=== PATIENT | male | born 1955 | race Caucasian/White ===

== ENCOUNTER 2018-07-20 20:39 | Emergency (ER) | payer MEDICARE, MEDICAID ==
--- NOTE | 2018-07-20 20:59 | ER Document Report ---
ED Medical Screen (RME) - General Chief Complaint: Abdominal Pain Stated Complaint: ABDOMINAL PAIN Time Seen by Provider: 07/20/18 20:57 Notes: 63-year-old male with a history of rectal cancer currently on chemotherapy comes for chief complaint of abdominal pain, when asked where he hurts he points to his right upper quadrant, no vomiting, no fever, last bowel movement was yesterday and normal reportedly. No surgeries of the abdomen reported. Eating less today per family. TRAVEL OUTSIDE OF THE [place] IN LAST 30 DAYS: No Physical Exam - Vital signs Vitals: Temp Pulse BP Pulse Ox 98.6 F 112 H 137/77 H 98 07/20/18 20:49 07/20/18 20:49 07/20/18 20:49 07/20/18 20:49 - General General appearance: Appears well In distress: None - Abdominal Inspection: Other - Irritation rash, no vesicles suggesting shingles Tenderness: Tender - Tender in the mid to upper abdomen on the right, remaining abdomen soft and benign. Course - Re-evaluation Re-evalutation: Patient almost nonverbal. He is smiling, attentive, he does have upper abdominal pain on palpation however. - Vital Signs Vital signs: Temp Pulse Resp BP Pulse Ox 98.6 F 112 H 137/77 H 98 07/20/18 20:49 07/20/18 20:49 07/20/18 20:49 07/20/18 20:49
[2018-07-20] MEDS ORDERED: NORMAL SALINE 1000 ML 1,000 ML IV ONE (21:20)
[2018-07-20 21:33] LABS: APPEARANCE,URINE CLOUDY; BILIRUBIN,URINE SMALL (NEGATIVE); COLOR,URINE AMBER; GLUCOSE, URINE 50 mg/dL (NEGATIVE); KETONES,URINE NEGATIVE (NEGATIVE); LEUKOCYTE ESTERASE,URINE NEGATIVE (NEGATIVE); NITRITE,URINE NEGATIVE (NEGATIVE); PROTEIN,URINE 100 mg/dL (NEGATIVE); URINE SPECIFIC GRAVITY 1.038
[2018-07-20 21:53] LABS: ABSOLUTE LYMPHOCYTES (AUTO) 1.2 10^3/uL (0.5-4.7); ABSOLUTE MONOCYTES (AUTO) 1.2 10^3/uL (0.1-1.4); ABSOLUTE NEUT (AUTO) 9.6 10^3/uL (1.7-8.2); BASOPHILS % (AUTO) 0.3 % (0-2); EOSINOPHILS % (AUTO) 0.1 % (0-6); HEMATOCRIT 40.9 % (37.9-51.0); LYMPHOCYTES % (AUTO) 9.7 % (13-45); MEAN CORPUSCULAR HGB CONC 34.3 g/dL (32.0-36.0); MEAN CORPUSCULAR VOLUME 96 fl (80-97); MONOCYTES % (AUTO) 10.3 % (3-13); PLATELET COUNT 270 10^3/uL (150-450); RED BLOOD COUNT 4.25 10^6/uL (4.35-5.55); RED CELL DISTRIBUTION WIDTH 19.2 % (11.5-14.0); SEGMENTED NEUTROPHILS % (AUTO) 79.6 % (42-78); TOTAL CELLS COUNTED % (AUTO) 100 %
[2018-07-20 22:10] LABS: ALANINE AMINOTRANSFERASE 156 U/L (21-72); ALBUMIN 4.2 g/dL (3.5-5.0); ALKALINE PHOSPHATASE 112 U/L (38-126); ANION GAP 16 (5-19); ASPARTATE AMINO TRANSFERASE 248 U/L (17-59); BILIRUBIN,DIRECT 1.7 mg/dL (0.0-0.4); BLOOD UREA NITROGEN 21 mg/dL (7-20); CALCIUM 9.6 mg/dL (8.4-10.2); CARBON DIOXIDE 19 mmol/L (22-30); CHLORIDE 104 mmol/L (98-107); GLUCOSE 232 mg/dL (75-110); LIPASE 29.1 U/L (23-300); POTASSIUM 4.3 mmol/L (3.6-5.0); SODIUM 138.5 mmol/L (137-145); TOTAL PROTEIN 8.2 g/dL (6.3-8.2)
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
--- NOTE | 2018-07-21 00:34 | RADIOLOGY REPORT (SQ) ---
CLINICAL DATA: 63-year-old male with right upper quadrant pain. TECHNICAL DATA: Limited sonographic imaging of the right upper quadrant was performed. Comparison: None. FINDINGS: The liver is enlarged and demonstrates heterogeneous increased echogenicity which is commonly seen with fatty infiltration. The liver measures 20 cm in greatest sagittal dimension. No focal hepatic abnormalities are identified. Doppler imaging reveals patency of the portal vein and normal hepatopedal flow. The gallbladder is well distended and contains a fluid debris level consistent with sludge. The gallbladder wall measures 3 mm in diameter. There is trace pericholecystic fluid. There is borderline biliary ductal dilatation. The common bile duct measures 7 mm in diameter. No sonographic García sign was detected by the technologist. The right kidney is normal in size, shape and echogenicity without hydronephrosis or definite nephrolithiasis. The right kidney measures 14 cm in length. There is no evidence of free fluid in the abdomen. The aorta and pancreas are poorly visualized due to adjacent overlying bowel gas. IMPRESSION: 1. Sludge-filled gallbladder with associated trace pericholecystic fluid and borderline biliary ductal dilatation without evidence of a sonographic García sign. 2. Hepatomegaly and increased echogenicity of the liver commonly due to fatty infiltration. 3. Abundant bowel gas obscuring portions of the aorta and pancreas.
[2018-07-21] MEDS ORDERED: RINGERS SOLUTION,LACTATED 1,000 ML IV ONE ×2 (00:38→09:52)
[2018-07-21] MEDS: PIPERACILLIN/TAZOBACTAM 3.375 GM VIAL IV SCH ×2 (02:07→06:41)
[2018-07-21] MEDS: MORPHINE SULFATE 10 MG/ML INJ IV PRN ×2 (02:07→06:42)
[2018-07-21] MEDS ORDERED: ONDANSETRON HCL INJ/PF 4 MG/2 ML SDV IV ONE ×2 (07:31→12:46)
--- NOTE | 2018-07-21 12:36 | ER Document Report ---
Doctor's Note Notes: 07/21/18 12:36 Transport has arrived to take the patient to do. Vital signs remained stable. Patient is stable for transport.
[2018-07-21 12:43] VITALS: BP 130/92
== END 2018-07-21 12:54 | disposition short-term general hospital (02) ==
LOC: ER 20:39
DX: K80.50 Calculus of bile duct without cholangitis or cholecystitis without obstruction (principal); R10.10 Upper abdominal pain, unspecified; R11.2 Nausea with vomiting, unspecified; R63.0 Anorexia; R62.50 Unspecified lack of expected normal physiological development in childhood; C20 Malignant neoplasm of rectum; Z79.899 Other long term (current) drug therapy
CPT/HCPCS: 96376; 99285; 96361; 96374; 96375; 36415; 83690; 85025; 80053; 81001; 76705; J2270; J2405; J2543

== ENCOUNTER 2019-07-17 15:37 | Inpatient (IN) | payer MEDICARE, MEDICAID ==
[2019-07-17] MEDS ORDERED: NORMAL SALINE 1000 ML 1,000 ML IV ONE (16:39)
[2019-07-17] MEDS ORDERED: CHLORPROMAZINE HCL INJ 25 MG/1 ML AMPULE IV ONE (16:40)
--- NOTE | 2019-07-17 16:48 | ER Document Report ---
ED General - General Chief Complaint: General Weakness Stated Complaint: WEAKNESS Time Seen by Provider: 07/17/19 16:38 Primary Care Provider: MELIZA LINDSEY PA-C [Primary Care Provider] - Follow up as needed Notes: Patient is being evaluated for weakness. He has a history of rectal cancer diagnosed about 2 years ago. It is currently rated as stage IV. Patient did not receive any radiation and did not have any surgery, but has been on chemotherapy every 2 weeks. His oncologist (Shamar ) is in [facility] and he has an appointment to see him tomorrow. Patient had a routine follow-up CT scan of his abdomen with oral and IV contrast yesterday. He had a prep the night before and then again yesterday morning before the procedure. He began having vomiting at midday yesterday but is not vomiting today. He is eating poorly although he is taking in liquids. He has been having urinary incontinence for some time and did so last night as well. He was advised to take a shower and when someone went to check on him, he was slumped on the commode and poorly responsive. Patient has not had any recent illness. Denies any shortness of breath. Denies any fever or chills. Patient has been having hiccups ever since he started on the IV chemotherapy. Transported here by EMS. Received 500 mL of Ringer's lactate on the way here Obtain the records of patient's CT scan performed yesterday at [place] [facility]. Patient had a CT of his chest, abdomen, and pelvis. CT findings show a new 7 mm cavitary lesion in the patient's along which is new and likely represents metastases. He has multiple other nodules in the lung. His CT of his abdomen and pelvis showed new pulmonary nodules, and interval change in size and number of hepatic lesions consistent with metastasis. Patient is here with his friend who has guardianship over him. This friend says that the patient is slow to moss picker on things and understand what is happening. He says the patient is not able to make decisions for himself and I am addressing the friend with all the information and questions. TRAVEL OUTSIDE OF THE [place] IN LAST 30 DAYS: No - Related Data Allergies/Adverse Reactions: No Known Drug Allergies Allergy (Verified 07/21/18 02:04) Past Medical History - Social History Smoking Status: Never Smoker Frequency of alcohol use: None Drug Abuse: None Family History: Reviewed & Not Pertinent Patient has suicidal ideation: No Patient has homicidal ideation: No - Past Medical History Cardiac Medical History: Reports: Hx Hypercholesterolemia Endocrine Medical History: Reports: Hx Diabetes Mellitus Type 2 Malignancy Medical History: Reports Hx Colorectal Cancer GI Medical History: Reports: Hx Gastroesophageal Reflux Disease Past Surgical History: Reports: Hx Cholecystectomy - About a year ago Review of Systems - Review of Systems Notes: REVIEW OF SYSTEMS: Obtained from patient's guardian CONSTITUTIONAL : Denies fever. EENT: Denies eye, ear, nose or mouth or throat pain or other symptoms. CARDIOVASCULAR: Denies chest pain. RESPIRATORY: Denies cough, chest congestion, or shortness of breath. GASTROINTESTINAL: Denies abdominal pain. Patient has had some nausea and vomiting the last couple of days but no diarrhea. GENITOURINARY: Denies difficulty or painful urinating, urinary frequency, blood in urine. MUSCULOSKELETAL: Denies back or neck pain. Denies joint pain or swelling. SKIN: Denies rash or skin lesions. NEUROLOGICAL: Not sure if patient had a loss of consciousness when he was found sitting on the commode. Has not complained of a headache. Moving all 4 extremities. Patient is very weak and difficult to walk but does not have any localizing sensory loss or motor deficits. ALL OTHER SYSTEMS REVIEWED AND NEGATIVE. Physical Exam - Vital signs Vitals: BP 120/62 07/17/19 15:45 Interpretation: Normal Notes: PHYSICAL EXAMINATION: GENERAL: Well-appearing, in no acute distress. Basically answers questions with simple smile or yes or no. Does not take part in the conversation. HEAD: Atraumatic, normocephalic. EYES: Pupils equal round and reactive to light, extraocular movements intact. ENT: oropharynx clear without exudates. Moist mucous membranes. NECK: Normal range of motion, supple. LUNGS: Breath sounds clear and equal bilaterally. HEART: Regular rate and rhythm without murmurs. ABDOMEN: Soft, nontender. No guarding or rebound. No masses. BACK: No tenderness throughout entire back. EXTREMITIES: Normal range of motion without pain. NEUROLOGICAL: Patient follows command and opens and closes eyes and mouth when requested for examination. He moves all 4 extremities equally. No sensory or motor deficits. He appears to be awake and alert, but not oriented to where he is located. No gross lesions of any of the cranial nerves. Attempted to stand patient and he is very shaky and can only barely keep up and only with some assistance. He is unable to walk. SKIN: Warm, dry, no rashes. Course - Re-evaluation Re-evalutation: 07/17/19 17:51 Obtain the reports from the patient CT scan of his chest, abdomen, and pelvis performed yesterday at [facility] beds at the [facility]. Summary is that patient has a pulmonary nodule this cavitating that looks like it probably a metastases. He also has numerous more lesions in his liver that are metastatic disease.. Tried to contact patient's oncologist, but it was a recorded line that said to try different number for the on-call physician. When I tried that, there was no answer after the phone and running at least 20 or 25 times. I then called [facility] and wanted to page the on-call oncologist, but I kept getting switch from one recording to another and finally gave up. 07/17/19 18:34 Obtained chest x-ray which shows a left lower lobe pneumonia. Spoke with hospitalist and patient will be admitted for treatment of pneumonia and hyponatremia. 07/17/19 18:40 - Vital Signs Vital signs: Temp Pulse Resp BP Pulse Ox 98.1 F 17 120/62 96 07/17/19 15:56 07/17/19 16:00 07/17/19 15:45 07/17/19 16:00 - Laboratory Result Diagrams: 07/17/19 16:55 07/17/19 16:55 Laboratory results interpreted by me: 07/17/19 07/17/19 07/17/19 16:55 16:55 16:55 WBC 16.7 H RBC 4.03 L Hgb 10.4 L Hct 30.7 L MCV 76 L MCH 25.9 L RDW 18.7 H Lymph % (Auto) 5.3 L Absolute Neuts (auto) 14.5 H Seg Neutrophils % 86.9 H Sodium 116.6 L* Chloride 79 L Total Bilirubin 1.7 H Direct Bilirubin 0.5 H AST 88 H Alkaline Phosphatase 485 H Albumin 3.4 L Urine Protein 30 H Urine Ketones 20 H Urine Urobilinogen 4.0 H - Diagnostic Test Radiology reviewed: Image reviewed, Reports reviewed - CT of the head shows no evidence of metastases and no evidence of stroke. Basically normal CT of the brain. Radiology results interpreted by me: 07/17/19 18:34 Chest x-ray shows left lower lobe pneumonia. - EKG Interpretation by Me EKG shows normal: Sinus rhythm Rate: Normal Rhythm: NSR Discharge - Discharge Clinical Impression: Pneumonia, Hyponatremia, Rectal cancer metastasized to liver, Rectal cancer metastasized to lung Condition: Fair Disposition: ADMITTED INPATIENT Admitting Provider: Thalia Ron Unit Admitted: IMCU Referrals: MELIZA LINDSEY PA-C [Primary Care Provider] - Follow up as needed
[2019-07-17 17:15] LABS: ABSOLUTE LYMPHOCYTES (AUTO) 0.9 10^3/uL (0.5-4.7); ABSOLUTE MONOCYTES (AUTO) 1.3 10^3/uL (0.1-1.4); ABSOLUTE NEUT (AUTO) 14.5 10^3/uL (1.7-8.2); BASOPHILS % (AUTO) 0.1 % (0-2); EOSINOPHILS % (AUTO) 0.2 % (0-6); HEMATOCRIT 30.7 % (37.9-51.0); HEMOGLOBIN 10.4 g/dL (13.5-17.0); LYMPHOCYTES % (AUTO) 5.3 % (13-45); MEAN CORPUSCULAR HEMOGLOBIN 25.9 pg (27.0-33.4); MEAN CORPUSCULAR VOLUME 76 fl (80-97); MONOCYTES % (AUTO) 7.5 % (3-13); PLATELET COUNT 250 10^3/uL (150-450); RED BLOOD COUNT 4.03 10^6/uL (4.35-5.55); RED CELL DISTRIBUTION WIDTH 18.7 % (11.5-14.0); SEGMENTED NEUTROPHILS % (AUTO) 86.9 % (42-78); TOTAL CELLS COUNTED % (AUTO) 100 %; WHITE BLOOD COUNT 16.7 10^3/uL (4.0-10.5)
[2019-07-17 17:20] LABS: APPEARANCE,URINE SLIGHTLY-CLOUDY; BILIRUBIN,URINE NEGATIVE (NEGATIVE); GLUCOSE, URINE NEGATIVE (NEGATIVE); KETONES,URINE 20 mg/dL (NEGATIVE); LEUKOCYTE ESTERASE,URINE NEGATIVE (NEGATIVE); NITRITE,URINE NEGATIVE (NEGATIVE); PROTEIN,URINE 30 mg/dL (NEGATIVE); URINE SPECIFIC GRAVITY 1.014
[2019-07-17 17:26] LABS: COLOR,URINE DARK YELLOW
[2019-07-17] MEDS ORDERED: ONDANSETRON HCL INJ/PF 4 MG/2 ML SDV IV ONE (17:35)
[2019-07-17 17:37] LABS: ALBUMIN 3.4 g/dL (3.5-5.0); ALKALINE PHOSPHATASE 485 U/L (38-126); ASPARTATE AMINO TRANSFERASE 88 U/L (17-59); BILIRUBIN,DIRECT 0.5 mg/dL (0.0-0.4); BILIRUBIN,TOTAL 1.7 mg/dL (0.2-1.3); BLOOD UREA NITROGEN 8 mg/dL (7-20); CALCIUM 8.7 mg/dL (8.4-10.2); CARBON DIOXIDE 23 mmol/L (22-30); CHLORIDE 79 mmol/L (98-107); GLUCOSE 95 mg/dL (75-110); POTASSIUM 4.7 mmol/L (3.6-5.0); TOTAL PROTEIN 7.1 g/dL (6.3-8.2)
[2019-07-17 17:38] LABS: ANION GAP 15 (5-19)
--- NOTE | 2019-07-17 18:02 | RADIOLOGY REPORT (SQ) ---
EXAM DESCRIPTION: CT HEAD WITHOUT COMPLETED DATE/TIME: 07/17/2019 5:54 pm REASON FOR STUDY: Hx rectal CA, stage IV with mets to liver and lung COMPARISON: None. TECHNIQUE: Axial images acquired through the brain without intravenous contrast. Images reviewed wi th bone, brain and subdural windows. Additional sagittal and coronal reconstructions were generated. Images stored on PACS. All CT scanners at this facility use dose modulation, iterative reconstruction, and/or weight based d osing when appropriate to reduce radiation dose to as low as reasonably achievable (ALARA). [facility]: Dose Right [facility]: CareDose [facility]: Dose Right [facility]: Teradose 4D [facility]: Smart Revolution Prep RADIATION DOSE: CT Rad equipment meets quality standard of care and radiation dose reduction techniq ues were employed. CTDIvol: 53.2 mGy. DLP: 1017 mGy-cm. mGy. LIMITATIONS: None. FINDINGS: VENTRICLES: Normal size and contour. CEREBRUM: No masses. No hemorrhage. No midline shift. No evidence for acute infarction. Normal gra y/white matter differentiation. No areas of low density in the white matter. CEREBELLUM: No masses. No hemorrhage. No alteration of density. No evidence for acute infarction. EXTRAAXIAL SPACES: No fluid collections. No masses. ORBITS AND GLOBE: No intra- or extraconal masses. Normal contour of globe without masses. CALVARIUM: No fracture. PARANASAL SINUSES: No fluid or mucosal thickening. SOFT TISSUES: No mass or hematoma. OTHER: No other significant finding. IMPRESSION: NORMAL BRAIN CT WITHOUT CONTRAST. EVIDENCE OF ACUTE STROKE: NO. COMMENT: Quality ID # [id number]: Final reports with documentation of one or more dose reduction techniques (e.g., Automated exposure control, adjustment of the mA and/or kV according to patient size, use of iterative reconstruction technique) TECHNICAL DOCUMENTATION: JOB ID: [id number] [employer]- All Rights Reserved Reading location - IP/workstation name: [email or web address]
[2019-07-17] MEDS ORDERED: OXYCODONE-ACETAMINOPHEN 5-325 MG TABLET PO PRN (18:35)
[2019-07-17] MEDS ORDERED: MAG HYDROX/AL HYDROX/SIMETH SUSP 30 ML UDCUP PO PRN (18:35)
--- NOTE | 2019-07-17 18:37 | RADIOLOGY REPORT (SQ) ---
EXAM DESCRIPTION: CHEST SINGLE VIEW COMPLETED DATE/TIME: 07/17/2019 6:28 pm REASON FOR STUDY: Leukocytosis and cough COMPARISON: None. EXAM PARAMETERS: NUMBER OF VIEWS: One view. TECHNIQUE: Single frontal radiographic view of the chest acquired. RADIATION DOSE: NA LIMITATIONS: None. FINDINGS: LUNGS AND PLEURA: Patchy opacification in the left lower lung. MEDIASTINUM AND HILAR STRUCTURES: No masses. Contour normal. HEART AND VASCULAR STRUCTURES: Heart normal in size. Normal vasculature. BONES: No acute findings. HARDWARE: None in the chest. OTHER: No other significant finding. IMPRESSION: Left lingular or lower lobe pneumonia. TECHNICAL DOCUMENTATION: JOB ID: [id number] [employer]- All Rights Reserved Reading location - IP/workstation name: [email or web address]
--- NOTE | 2019-07-17 18:41 | EKG REPORT ---
SEVERITY:- ABNORMAL ECG - SINUS RHYTHM NONSPECIFIC INTRAVENTRICULAR CONDUCTION DELAY : Confirmed by: Vasu Hawkins MD 17-Jul-2019 18:39:28
[2019-07-17] MEDS ORDERED: CHLORPROMAZINE HCL INJ 25 MG/1 ML AMPULE IV PRN (18:44)
[2019-07-17] MEDS ORDERED: VANCOMYCIN HCL 0 MG in DEXTROSE 5%-WATER 250 ML IV NR (18:45)
--- NOTE | 2019-07-17 18:46 | Progress Note Acknowledgement ---
Progress Note Acknowledgement Progess Note Acknowledgement: I, the undersigned member of the medical staff with appropriate privileges and with supervisory authority over [Oskar Ron], a dependent practice allied health professional, acknowledge that I have reviewed the progress notes entered on this patient, and in my professional judgment believe that the assessment made and/or any care evidenced was appropriate
--- NOTE | 2019-07-17 18:55 | PDOC H&P ---
History of Present Illness Admission Date/PCP: 07/17/2019 MELIZA LINDSEY PA-C Patient complains of: Weakness History of Present Illness: ADRIANNE KAY is a 64 year old male who presents with his power of employment attorney. Patient does not speak much has a history of rectal cancer with as diagnosed 2 years ago. It was currently rated at stage IV. Patient been on chemotherapy for the last 2 weeks although he had no radiation or any surgical interventions. Patient was to have a routine follow-up CAT scan of the abdomen with oral and IV contrast yesterday. He had a prep the night before and then again yesterday morning before the procedure unfortunately started having vomiting at midday yesterday but has had no vomiting at this time. Is eating poorly though he is taking liquids and having any urinary incontinence for some time but did so last night. Patient had a hiccups ever since receiving IV chemotherapy. Patient was found to have severe hyponatremia sodium 116, a left lower lobe pneumonia, anemia and incontinence. Patient had no treatment prior to arrival all activities been aggravating factor. Past Medical History Cardiac Medical History: Reports: Hyperlipidema Endocrine Medical History: Reports: Diabetes Mellitus Type 2 Malignancy Medical History: Reports: Colorectal Cancer GI Medical History: Reports: Gastroesophageal Reflux Disease Past Surgical History Past Surgical History: Reports: Cholecystectomy - About a year ago Social History Information Source: Patient, Legal Guardian Lives with: Family Smoking Status: Never Smoker Frequency of Alcohol Use: None Hx Recreational Drug Use: No Drugs: None Hx Prescription Drug Abuse: No - Advance Directive Resuscitation Status: Full Code Family History Family History: Other - Unknown patient adopted Parental Family History Reviewed: No - Patient adopted Children Family History Reviewed: Unknown - Adopted Sibling(s) Family History Reviewed.: Unknown - Adopted Medication/Allergy Allergies/Adverse Reactions: No Known Drug Allergies Allergy (Verified 07/21/18 02:04) Review of Systems Constitutional: PRESENT: weakness, weight loss. ABSENT: chills, fever(s), headache(s), weight gain Eyes: ABSENT: visual disturbances Ears: ABSENT: hearing changes Cardiovascular: ABSENT: chest pain, dyspnea on exertion, edema, orthropnea, palpitations Respiratory: ABSENT: cough, hemoptysis Gastrointestinal: ABSENT: abdominal pain, constipation, diarrhea, hematemesis, hematochezia, nausea, vomiting Genitourinary: ABSENT: dysuria, hematuria Musculoskeletal: ABSENT: joint swelling Integumentary: ABSENT: rash, wounds Neurological: ABSENT: abnormal gait, abnormal speech, confusion, dizziness, focal weakness, syncope Psychiatric: ABSENT: anxiety, depression, homidical ideation, suicidal ideation Endocrine: ABSENT: cold intolerance, heat intolerance, polydipsia, polyuria Hematologic/Lymphatic: ABSENT: easy bleeding, easy bruising Physical Exam Vital Signs: Temp Pulse Resp BP Pulse Ox 98.1 F 17 120/62 96 07/17/19 15:56 07/17/19 16:00 07/17/19 15:45 07/17/19 16:00 Intake & Output 07/16/19 07/17/19 07/18/19 06:59 06:59 06:59 Weight 86.3 kg General appearance: PRESENT: no acute distress, thin Head exam: PRESENT: atraumatic, normocephalic Eye exam: PRESENT: conjunctiva pink, EOMI, PERRLA. ABSENT: scleral icterus Ear exam: PRESENT: normal external ear exam Mouth exam: PRESENT: moist, tongue midline Neck exam: ABSENT: carotid bruit, JVD, lymphadenopathy, thyromegaly Respiratory exam: PRESENT: clear to auscultation may, decreased breath sounds, rhonchi, symmetrical, unlabored, other - Left lower lobe rhonchi. ABSENT: rales, wheezes Cardiovascular exam: PRESENT: RRR. ABSENT: diastolic murmur, rubs, systolic murmur Pulses: PRESENT: normal dorsalis pedis pul Vascular exam: PRESENT: normal capillary refill GI/Abdominal exam: PRESENT: normal bowel sounds, soft. ABSENT: distended, guarding, mass, organolmegaly, rebound, tenderness Rectal exam: PRESENT: deferred Extremities exam: ABSENT: clubbing, pedal edema Musculoskeletal exam: PRESENT: other Neurological exam: PRESENT: alert, awake. ABSENT: motor sensory deficit Psychiatric exam: PRESENT: normal mood, other - Unable to assess. ABSENT: homicidal ideation, suicidal ideation Focused psych exam: PRESENT: other - Unable to evaluate secondary to patient's current medical status Skin exam: PRESENT: dry, intact, warm. ABSENT: cyanosis, rash Results Laboratory Results: 07/17/19 16:55 07/17/19 16:55 07/17/19 07/17/19 07/17/19 15:10 15:10 16:55 WBC Cancelled 16.7 H RBC Cancelled 4.03 L Hgb Cancelled 10.4 L Hct Cancelled 30.7 L MCV Cancelled 76 L MCH Cancelled 25.9 L MCHC Cancelled 34.0 RDW Cancelled 18.7 H Plt Count Cancelled 250 Seg Neutrophils % Cancelled 86.9 H Sodium Cancelled Potassium Cancelled Chloride Cancelled Carbon Dioxide Cancelled Anion Gap Cancelled BUN Cancelled Creatinine Cancelled Est GFR ( Amer) Cancelled Est GFR (Non-Af Amer) Cancelled Glucose Cancelled Calcium Cancelled Total Bilirubin Cancelled AST Cancelled Alkaline Phosphatase Cancelled Total Protein Cancelled Albumin Cancelled Lipase Cancelled Urine Color Urine Appearance Urine pH Ur Specific [place] Urine Protein Urine Glucose (UA) Urine Ketones Urine Blood Urine Nitrite Ur Leukocyte Esterase Urine WBC (Auto) 07/17/19 07/17/19 16:55 16:55 WBC RBC Hgb Hct MCV MCH MCHC RDW Plt Count Seg Neutrophils % Sodium 116.6 L* Potassium 4.7 Chloride 79 L Carbon Dioxide 23 Anion Gap 15 BUN 8 Creatinine 1.16 Est GFR ( Amer) > 60 Est GFR (Non-Af Amer) Glucose 95 Calcium 8.7 Total Bilirubin 1.7 H AST 88 H Alkaline Phosphatase 485 H Total Protein 7.1 Albumin 3.4 L Lipase 40.1 Urine Color DARK YELLOW Urine Appearance SLIGHTLY-CLOUDY Urine pH 6.0 Ur Specific [place] 1.014 Urine Protein 30 H Urine Glucose (UA) NEGATIVE Urine Ketones 20 H Urine Blood NEGATIVE Urine Nitrite NEGATIVE Ur Leukocyte Esterase NEGATIVE Urine WBC (Auto) 3 07/17/19 07/17/19 15:10 16:55 Troponin I Cancelled < 0.012 Impressions: Head CT 07/17/19 17:29 IMPRESSION: NORMAL BRAIN CT WITHOUT CONTRAST. EVIDENCE OF ACUTE STROKE: NO. Chest X-Ray 07/17/19 18:12 IMPRESSION: Left lingular or lower lobe pneumonia. Assessment and Plan - Diagnosis (1) Hyponatremia Is this a current diagnosis for this admission?: Yes Plan: 07/17/2019-current sodium level 116. Will obtain a urine osmolality to determine exact cause. Will hydrate with normal saline 125 an hour until we have results returned. Will reassess with morning BMP. (2) Left lower lobe pneumonia Is this a current diagnosis for this admission?: Yes Plan: 07/17/2019-patient with a white count and a left lower lobe infiltrate on chest x-ray. At this time we will treat him with IV vancomycin and Zosyn per pharmacy dosing will await cultures for fitting organism and make changes plan of care as appropriate. (3) Anemia Is this a current diagnosis for this admission?: Yes Plan: 07/17/2019-chronic stable continue to follow daily CBCs. (4) Weakness Is this a current diagnosis for this admission?: Yes Plan: 07/17/2019-restore sodium to normal level have patient evaluated by physical and Occupational Therapy. Await recommendations and make change plan of care. As patient is in a weakened state I will also hold him n.p.o. until he can be seen by speech for swallow evaluation. - Time Time Spent with patient: 35 or more minutes - Inpatient Certification Based on my medical assessment, after consideration of the patient's comorbidities, presenting symptoms, or acuity I expect that the services needed warrant INPATIENT care.: Yes I certify that my determination is in accordance with my understanding of Medicare's requirements for reasonable and necessary INPATIENT services [42 CFR 412.3e].: Yes Medical Necessity: Other - IV fluids, IV antibiotics
[2019-07-17] MEDS: VANCOMYCIN HCL 1,250 MG in DEXTROSE 5%-WATER 250 ML IV SCH (19:46)
[2019-07-17] MEDS: NORMAL SALINE 1000 ML 1,000 ML IV PRN (19:46)
[2019-07-17] MEDS: HEPARIN SOD (PORCINE) 5,000 UNIT/ML 1 ML VIAL SUBCUT SCH (22:15)
[2019-07-17] MEDS: ONDANSETRON HCL INJ/PF 4 MG/2 ML SDV IV PRN (22:15)
[2019-07-18] MEDS ORDERED: PIPERACILLIN/TAZOBACTAM 3.375 GM VIAL IV ONE
[2019-07-18] MEDS: PIPERACILLIN SODIUM/TAZOBACTAM 3.375 GM in NORMAL SALINE 100 ML IV SCH ×4 (00:26→18:14)
[2019-07-18] MEDS: NORMAL SALINE 1000 ML 1,000 ML IV PRN ×3 (03:26→18:14)
[2019-07-18] MEDS ORDERED: VANCOMYCIN HCL INJ 1000 MG VIAL ONE (05:23)
[2019-07-18] MEDS ORDERED: VANCOMYCIN HCL INJ 500 MG VIAL ONE (05:23)
[2019-07-18] MEDS: VANCOMYCIN HCL 1,250 MG in DEXTROSE 5%-WATER 250 ML IV SCH ×2 (05:45→18:15)
[2019-07-18] MEDS: HEPARIN SOD (PORCINE) 5,000 UNIT/ML 1 ML VIAL SUBCUT SCH ×3 (05:46→22:52)
[2019-07-18 05:51] LABS: ABSOLUTE EOSINOPHILS # (AUTO) 0.2 10^3/uL (0.0-0.6); ABSOLUTE LYMPHOCYTES (AUTO) 1.2 10^3/uL (0.5-4.7); ABSOLUTE MONOCYTES (AUTO) 0.9 10^3/uL (0.1-1.4); ABSOLUTE NEUT (AUTO) 6.4 10^3/uL (1.7-8.2); BASOPHILS % (AUTO) 0.3 % (0-2); EOSINOPHILS % (AUTO) 1.9 % (0-6); HEMATOCRIT 28.8 % (37.9-51.0); HEMOGLOBIN 9.8 g/dL (13.5-17.0); MEAN CORPUSCULAR HEMOGLOBIN 25.9 pg (27.0-33.4); MEAN CORPUSCULAR VOLUME 76 fl (80-97); MONOCYTES % (AUTO) 10.6 % (3-13); PLATELET COUNT 207 10^3/uL (150-450); RED BLOOD COUNT 3.78 10^6/uL (4.35-5.55); RED CELL DISTRIBUTION WIDTH 19.2 % (11.5-14.0); SEGMENTED NEUTROPHILS % (AUTO) 73.2 % (42-78); TOTAL CELLS COUNTED % (AUTO) 100 %; WHITE BLOOD COUNT 8.7 10^3/uL (4.0-10.5)
[2019-07-18 06:22] LABS: ANION GAP 8 (5-19); BLOOD UREA NITROGEN 7 mg/dL (7-20); CALCIUM 8.6 mg/dL (8.4-10.2); CARBON DIOXIDE 25 mmol/L (22-30); CHLORIDE 93 mmol/L (98-107); GLUCOSE 87 mg/dL (75-110); PHOSPHORUS 3.9 mg/dL (2.5-4.5); POTASSIUM 4.5 mmol/L (3.6-5.0)
--- NOTE | 2019-07-18 09:03 | PDOC PROGRESS REPORT ---
Subjective Progress Note for:: 07/18/19 Subjective:: 07/18/2019-patient resting comfortably this time. Guardian is not at bedside Reason For Visit: PNEUMONIA, HYPONATREMIA, RECTAL CANCER Physical Exam Vital Signs: Temp Pulse Resp BP Pulse Ox 97.7 F 67 18 133/68 H 100 07/18/19 07:33 07/18/19 07:33 07/18/19 07:33 07/18/19 07:33 07/18/19 07:33 Intake & Output 07/17/19 07/18/19 07/19/19 06:59 06:59 06:59 Intake Total 2308 Output Total 4400 Balance -209 Weight 86.7 kg General appearance: PRESENT: no acute distress, well-developed, well-nourished Neck exam: ABSENT: carotid bruit, JVD, lymphadenopathy, thyromegaly Respiratory exam: PRESENT: clear to auscultation may. ABSENT: rales, rhonchi, wheezes Cardiovascular exam: PRESENT: RRR. ABSENT: diastolic murmur, rubs, systolic murmur Pulses: PRESENT: +1 pedal pulses bilateral Vascular exam: PRESENT: normal capillary refill GI/Abdominal exam: PRESENT: normal bowel sounds, soft. ABSENT: distended, guarding, mass, organolmegaly, rebound, tenderness Neurological exam: PRESENT: other - Sleeping, but at baseline patient answers only one question at a time and at basic level Psychiatric exam: PRESENT: other - Sleeping at this time Skin exam: PRESENT: dry, intact, warm. ABSENT: cyanosis, rash Results Laboratory Results: 07/18/19 05:13 07/18/19 05:13 07/17/19 07/17/19 07/17/19 15:10 15:10 16:55 WBC Cancelled 16.7 H RBC Cancelled 4.03 L Hgb Cancelled 10.4 L Hct Cancelled 30.7 L MCV Cancelled 76 L MCH Cancelled 25.9 L MCHC Cancelled 34.0 RDW Cancelled 18.7 H Plt Count Cancelled 250 Seg Neutrophils % Cancelled 86.9 H Sodium Cancelled Potassium Cancelled Chloride Cancelled Carbon Dioxide Cancelled Anion Gap Cancelled BUN Cancelled Creatinine Cancelled Est GFR ( Amer) Cancelled Est GFR (Non-Af Amer) Cancelled Glucose Cancelled Calcium Cancelled Phosphorus Magnesium Total Bilirubin Cancelled AST Cancelled Alkaline Phosphatase Cancelled Total Protein Cancelled Albumin Cancelled Lipase Cancelled Urine Color Urine Appearance Urine pH Ur Specific [place] Urine Protein Urine Glucose (UA) Urine Ketones Urine Blood Urine Nitrite Ur Leukocyte Esterase Urine WBC (Auto) Urine Osmolality 07/17/19 07/17/19 07/17/19 16:55 16:55 20:23 WBC RBC Hgb Hct MCV MCH MCHC RDW Plt Count Seg Neutrophils % Sodium 116.6 L* Potassium 4.7 Chloride 79 L Carbon Dioxide 23 Anion Gap 15 BUN 8 Creatinine 1.16 Est GFR ( Amer) > 60 Est GFR (Non-Af Amer) Glucose 95 Calcium 8.7 Phosphorus Magnesium Total Bilirubin 1.7 H AST 88 H Alkaline Phosphatase 485 H Total Protein 7.1 Albumin 3.4 L Lipase 40.1 Urine Color DARK YELLOW Urine Appearance SLIGHTLY-CLOUDY Urine pH 6.0 Ur Specific [place] 1.014 Urine Protein 30 H Urine Glucose (UA) NEGATIVE Urine Ketones 20 H Urine Blood NEGATIVE Urine Nitrite NEGATIVE Ur Leukocyte Esterase NEGATIVE Urine WBC (Auto) 3 Urine Osmolality 102 L 07/18/19 07/18/19 05:13 05:13 WBC 8.7 RBC 3.78 L Hgb 9.8 L Hct 28.8 L MCV 76 L MCH 25.9 L MCHC 34.0 RDW 19.2 H Plt Count 207 Seg Neutrophils % 73.2 Sodium 126.2 L Potassium 4.5 Chloride 93 L Carbon Dioxide 25 Anion Gap 8 BUN 7 Creatinine 0.98 Est GFR ( Amer) > 60 Est GFR (Non-Af Amer) Glucose 87 Calcium 8.6 Phosphorus 3.9 Magnesium 1.6 Total Bilirubin AST Alkaline Phosphatase Total Protein Albumin Lipase Urine Color Urine Appearance Urine pH Ur Specific [place] Urine Protein Urine Glucose (UA) Urine Ketones Urine Blood Urine Nitrite Ur Leukocyte Esterase Urine WBC (Auto) Urine Osmolality 07/17/19 07/17/19 15:10 16:55 Troponin I Cancelled < 0.012 Impressions: Head CT 07/17/19 17:29 IMPRESSION: NORMAL BRAIN CT WITHOUT CONTRAST. EVIDENCE OF ACUTE STROKE: NO. Chest X-Ray 07/17/19 18:12 IMPRESSION: Left lingular or lower lobe pneumonia. Assessment and Plan - Diagnosis (1) Hyponatremia Is this a current diagnosis for this admission?: Yes Plan: 07/17/2019-current sodium level 116. Will obtain a urine osmolality to determine exact cause. Will hydrate with normal saline 125 an hour until we have results returned. Will reassess with morning BMP. 07/18/2019-sodium improved to 126 this a.m. I will decrease normal saline at 75 mL an hour repeat BMP in a.m. (2) Left lower lobe pneumonia Is this a current diagnosis for this admission?: Yes Plan: 07/17/2019-patient with a white count and a left lower lobe infiltrate on chest x-ray. At this time we will treat him with IV vancomycin and Zosyn per pharmacy dosing will await cultures for fitting organism and make changes plan of care as appropriate. 07/18/2019-continue IV vancomycin and Zosyn until cultures return. (3) Anemia Is this a current diagnosis for this admission?: Yes Plan: 07/17/2019-chronic stable continue to follow daily CBCs. 07/18/2019-stable, continue to follow daily CBCs (4) Weakness Is this a current diagnosis for this admission?: Yes Plan: 07/17/2019-restore sodium to normal level have patient evaluated by physical and Occupational Therapy. Await recommendations and make change plan of care. As patient is in a weakened state I will also hold him n.p.o. until he can be seen by speech for swallow evaluation. 07/18/2019-sodium correcting nicely at this time. Patient has physical and occupational therapy consultations and. Patient sleeping at this time his guardian is not at the bedside. Patient answers only simple questions 1 at a time when he does answer questions. He is a poor historian and unable to address needs to himself. (5) Rectal cancer Is this a current diagnosis for this admission?: Yes Plan: 07/18/2019-we will have nursing contact patient's oncologist and notify me is in the hospital at this time patient was supposed to have an appointment this a.m. - Time Time Spent with patient: 15-24 minutes - Inpatient Certification Based on my medical assessment, after consideration of the patient's comorbidities, presenting symptoms, or acuity I expect that the services needed warrant INPATIENT care.: Yes I certify that my determination is in accordance with my understanding of Medicare's requirements for reasonable and necessary INPATIENT services [42 CFR 412.3e].: Yes Medical Necessity: Other - IV fluids, IV antibiotics
[2019-07-18] MEDS: PANTOPRAZOLE SODIUM 40 MG VIAL IV SCH (09:49)
[2019-07-19] MEDS: PIPERACILLIN SODIUM/TAZOBACTAM 3.375 GM in NORMAL SALINE 100 ML IV SCH ×2 (00:35→06:01)
[2019-07-19] MEDS: HEPARIN SOD (PORCINE) 5,000 UNIT/ML 1 ML VIAL SUBCUT SCH ×3 (06:01→21:19)
[2019-07-19] MEDS: VANCOMYCIN HCL 1,250 MG in DEXTROSE 5%-WATER 250 ML IV SCH ×2 (06:01→17:55)
[2019-07-19 07:10] LABS: ABSOLUTE BASOPHILS # (AUTO) 0.1 10^3/uL (0.0-0.2); ABSOLUTE EOSINOPHILS # (AUTO) 0.2 10^3/uL (0.0-0.6); ABSOLUTE LYMPHOCYTES (AUTO) 1.6 10^3/uL (0.5-4.7); ABSOLUTE NEUT (AUTO) 5.7 10^3/uL (1.7-8.2); BASOPHILS % (AUTO) 1.1 % (0-2); EOSINOPHILS % (AUTO) 2.4 % (0-6); HEMATOCRIT 29.9 % (37.9-51.0); HEMOGLOBIN 10.1 g/dL (13.5-17.0); LYMPHOCYTES % (AUTO) 18.4 % (13-45); MEAN CORPUSCULAR HEMOGLOBIN 25.9 pg (27.0-33.4); MEAN CORPUSCULAR HGB CONC 33.7 g/dL (32.0-36.0); MEAN CORPUSCULAR VOLUME 77 fl (80-97); MONOCYTES % (AUTO) 11.4 % (3-13); PLATELET COUNT 236 10^3/uL (150-450); RED BLOOD COUNT 3.89 10^6/uL (4.35-5.55); RED CELL DISTRIBUTION WIDTH 18.8 % (11.5-14.0); SEGMENTED NEUTROPHILS % (AUTO) 66.7 % (42-78); TOTAL CELLS COUNTED % (AUTO) 100 %; WHITE BLOOD COUNT 8.5 10^3/uL (4.0-10.5)
[2019-07-19 07:37] LABS: ANION GAP 11 (5-19); BLOOD UREA NITROGEN 7 mg/dL (7-20); CALCIUM 8.3 mg/dL (8.4-10.2); CARBON DIOXIDE 20 mmol/L (22-30); CHLORIDE 101 mmol/L (98-107); GLUCOSE 96 mg/dL (75-110); POTASSIUM 4.3 mmol/L (3.6-5.0)
--- NOTE | 2019-07-19 10:11 | PDOC PROGRESS REPORT ---
Subjective Progress Note for:: 07/19/19 Subjective:: 07/18/2019-patient resting comfortably this time. Guardian is not at bedside 07/19/2019-no complaints this a.m. Reason For Visit: PNEUMONIA, HYPONATREMIA, RECTAL CANCER Physical Exam Vital Signs: Temp Pulse Resp BP Pulse Ox 97.5 F 79 16 125/68 100 07/19/19 08:04 07/19/19 08:04 07/19/19 03:14 07/19/19 08:04 07/19/19 08:04 Intake & Output 07/18/19 07/19/19 07/20/19 06:59 06:59 06:59 Intake Total 2308 1421 Output Total 4402 1667 Balance -2091 -3403 Weight 86.7 kg 87.4 kg General appearance: PRESENT: no acute distress, well-developed, well-nourished Respiratory exam: PRESENT: clear to auscultation may. ABSENT: rales, rhonchi, wheezes Cardiovascular exam: PRESENT: RRR. ABSENT: diastolic murmur, rubs, systolic murmur Pulses: PRESENT: normal dorsalis pedis pul Vascular exam: PRESENT: normal capillary refill GI/Abdominal exam: PRESENT: normal bowel sounds, soft. ABSENT: distended, guarding, mass, organolmegaly, rebound, tenderness Extremities exam: PRESENT: full ROM. ABSENT: calf tenderness, clubbing, pedal edema Neurological exam: PRESENT: alert, awake, oriented to person, CN II-XII grossly intact. ABSENT: motor sensory deficit Psychiatric exam: PRESENT: appropriate affect, normal mood. ABSENT: homicidal ideation, suicidal ideation Skin exam: PRESENT: dry, intact, warm. ABSENT: cyanosis, rash Results Laboratory Results: 07/19/19 05:51 07/19/19 05:51 07/17/19 07/19/19 07/19/19 15:10 05:51 05:51 WBC Cancelled 8.5 RBC Cancelled 3.89 L Hgb Cancelled 10.1 L Hct Cancelled 29.9 L MCV Cancelled 77 L MCH Cancelled 25.9 L MCHC Cancelled 33.7 RDW Cancelled 18.8 H Plt Count Cancelled 236 Seg Neutrophils % Cancelled 66.7 Sodium 132.0 L Potassium 4.3 Chloride 101 Carbon Dioxide 20 L Anion Gap 11 BUN 7 Creatinine 0.96 Est GFR ( Amer) > 60 Glucose 96 Calcium 8.3 L 07/17/19 07/17/19 15:10 16:55 Troponin I Cancelled < 0.012 Impressions: Head CT 07/17/19 17:29 IMPRESSION: NORMAL BRAIN CT WITHOUT CONTRAST. EVIDENCE OF ACUTE STROKE: NO. Chest X-Ray 07/17/19 18:12 IMPRESSION: Left lingular or lower lobe pneumonia. Assessment and Plan - Diagnosis (1) Hyponatremia Is this a current diagnosis for this admission?: Yes Plan: 07/17/2019-current sodium level 116. Will obtain a urine osmolality to determine exact cause. Will hydrate with normal saline 125 an hour until we have results returned. Will reassess with morning BMP. 07/18/2019-sodium improved to 126 this a.m. I will decrease normal saline at 75 mL an hour repeat BMP in a.m. 07/19/2019-sodium 132. Continue normal saline at 75 mL an hour repeat BMP in a.m. (2) Left lower lobe pneumonia Is this a current diagnosis for this admission?: Yes Plan: 07/17/2019-patient with a white count and a left lower lobe infiltrate on chest x-ray. At this time we will treat him with IV vancomycin and Zosyn per pharmacy dosing will await cultures for fitting organism and make changes plan of care as appropriate. 07/18/2019-continue IV vancomycin and Zosyn until cultures return. 07/19/2019-continues to improve. I have DC'd Zosyn he is showing gram-positive cocci in blood culture we will continue Vigamox await cultures. (3) Anemia Is this a current diagnosis for this admission?: Yes Plan: 07/17/2019-chronic stable continue to follow daily CBCs. 07/18/2019-stable, continue to follow daily CBCs 07/19/2019-stable (4) Weakness Is this a current diagnosis for this admission?: Yes Plan: 07/17/2019-restore sodium to normal level have patient evaluated by physical and Occupational Therapy. Await recommendations and make change plan of care. As patient is in a weakened state I will also hold him n.p.o. until he can be seen by speech for swallow evaluation. 07/18/2019-sodium correcting nicely at this time. Patient has physical and occupational therapy consultations and. Patient sleeping at this time his guardian is not at the bedside. Patient answers only simple questions 1 at a time when he does answer questions. He is a poor historian and unable to address needs to himself. 07/19/2019-improved. Patient did walk with physical therapy for 300 feet yesterday. He will continue to work with physical therapy as needed. (5) Rectal cancer Is this a current diagnosis for this admission?: Yes Plan: 07/18/2019-we will have nursing contact patient's oncologist and notify me is in the hospital at this time patient was supposed to have an appointment this a.m. 07/19/2019-stable we will follow-up with oncology after his discharge. - Time Time Spent with patient: 15-24 minutes - Inpatient Certification Based on my medical assessment, after consideration of the patient's comorbidities, presenting symptoms, or acuity I expect that the services needed warrant INPATIENT care.: Yes I certify that my determination is in accordance with my understanding of Medicare's requirements for reasonable and necessary INPATIENT services [42 CFR 412.3e].: Yes Medical Necessity: Other - IV fluids, IV antibiotics
[2019-07-19] MEDS: PANTOPRAZOLE SODIUM 40 MG VIAL IV SCH (10:16)
[2019-07-19 18:35] LABS: VANCOMYCIN,TROUGH 14.8 ug/mL (5.0-20.0)
[2019-07-19] MEDS: NORMAL SALINE 1000 ML 1,000 ML IV PRN (23:25)
[2019-07-20] MEDS: VANCOMYCIN HCL 1,250 MG in DEXTROSE 5%-WATER 250 ML IV SCH ×2 (06:19→18:06)
[2019-07-20] MEDS: HEPARIN SOD (PORCINE) 5,000 UNIT/ML 1 ML VIAL SUBCUT SCH ×3 (06:20→21:16)
[2019-07-20 06:46] LABS: ABSOLUTE BASOPHILS # (AUTO) 0.1 10^3/uL (0.0-0.2); ABSOLUTE EOSINOPHILS # (AUTO) 0.2 10^3/uL (0.0-0.6); ABSOLUTE LYMPHOCYTES (AUTO) 1.4 10^3/uL (0.5-4.7); ABSOLUTE MONOCYTES (AUTO) 0.9 10^3/uL (0.1-1.4); ABSOLUTE NEUT (AUTO) 6.3 10^3/uL (1.7-8.2); BASOPHILS % (AUTO) 0.6 % (0-2); EOSINOPHILS % (AUTO) 2.8 % (0-6); HEMATOCRIT 29.5 % (37.9-51.0); HEMOGLOBIN 9.7 g/dL (13.5-17.0); LYMPHOCYTES % (AUTO) 15.6 % (13-45); MEAN CORPUSCULAR HEMOGLOBIN 25.4 pg (27.0-33.4); MEAN CORPUSCULAR VOLUME 77 fl (80-97); MONOCYTES % (AUTO) 10.2 % (3-13); PLATELET COUNT 239 10^3/uL (150-450); RED BLOOD COUNT 3.83 10^6/uL (4.35-5.55); RED CELL DISTRIBUTION WIDTH 19.2 % (11.5-14.0); SEGMENTED NEUTROPHILS % (AUTO) 70.8 % (42-78); TOTAL CELLS COUNTED % (AUTO) 100 %; WHITE BLOOD COUNT 8.9 10^3/uL (4.0-10.5)
[2019-07-20 07:06] LABS: ANION GAP 10 (5-19); BLOOD UREA NITROGEN 6 mg/dL (7-20); CALCIUM 8.1 mg/dL (8.4-10.2); CARBON DIOXIDE 22 mmol/L (22-30); CHLORIDE 98 mmol/L (98-107); GLUCOSE 102 mg/dL (75-110); POTASSIUM 4.1 mmol/L (3.6-5.0)
--- NOTE | 2019-07-20 09:14 | PDOC PROGRESS REPORT ---
Subjective Progress Note for:: 07/20/19 Subjective:: 07/18/2019-patient resting comfortably this time. Guardian is not at bedside 07/19/2019-no complaints this a.m. 07/20/2019-no complaints this a.m. Reason For Visit: PNEUMONIA, HYPONATREMIA, RECTAL CANCER Physical Exam Vital Signs: Temp Pulse Resp BP Pulse Ox 97.3 F 73 17 144/62 H 95 07/20/19 07:57 07/20/19 07:57 07/20/19 07:57 07/20/19 07:57 07/20/19 07:57 Intake & Output 07/19/19 07/20/19 07/21/19 06:59 06:59 06:59 Intake Total 1521 2664 Output Total 4825 2200 Balance -3304 464 Weight 87.4 kg 87.5 kg General appearance: PRESENT: no acute distress, well-developed, well-nourished Neck exam: ABSENT: carotid bruit, JVD, lymphadenopathy, thyromegaly Respiratory exam: PRESENT: decreased breath sounds, symmetrical, unlabored. ABSENT: rales, rhonchi, wheezes Cardiovascular exam: PRESENT: RRR. ABSENT: diastolic murmur, rubs, systolic murmur Pulses: PRESENT: normal dorsalis pedis pul Vascular exam: PRESENT: normal capillary refill GI/Abdominal exam: PRESENT: normal bowel sounds, soft. ABSENT: distended, guarding, mass, organolmegaly, rebound, tenderness Neurological exam: PRESENT: alert, awake, oriented to person Psychiatric exam: PRESENT: appropriate affect, normal mood. ABSENT: homicidal ideation, suicidal ideation Skin exam: PRESENT: dry, intact, warm. ABSENT: cyanosis, rash Results Laboratory Results: 07/20/19 06:08 07/20/19 06:08 07/20/19 07/20/19 06:08 06:08 WBC 8.9 RBC 3.83 L Hgb 9.7 L Hct 29.5 L MCV 77 L MCH 25.4 L MCHC 33.0 RDW 19.2 H Plt Count 239 Seg Neutrophils % 70.8 Sodium 130.1 L Potassium 4.1 Chloride 98 Carbon Dioxide 22 Anion Gap 10 BUN 6 L Creatinine 0.74 Est GFR ( Amer) > 60 Glucose 102 Calcium 8.1 L 07/17/19 07/17/19 15:10 16:55 Troponin I Cancelled < 0.012 Impressions: Head CT 07/17/19 17:29 IMPRESSION: NORMAL BRAIN CT WITHOUT CONTRAST. EVIDENCE OF ACUTE STROKE: NO. Chest X-Ray 07/17/19 18:12 IMPRESSION: Left lingular or lower lobe pneumonia. Assessment and Plan - Diagnosis (1) Hyponatremia Is this a current diagnosis for this admission?: Yes Plan: 07/17/2019-current sodium level 116. Will obtain a urine osmolality to determine exact cause. Will hydrate with normal saline 125 an hour until we have results returned. Will reassess with morning BMP. 07/18/2019-sodium improved to 126 this a.m. I will decrease normal saline at 75 mL an hour repeat BMP in a.m. 07/19/2019-sodium 132. Continue normal saline at 75 mL an hour repeat BMP in a.m. 07/20/2019-stable. Will DC IV fluids at this time. Continue BMPs in a.m. (2) Left lower lobe pneumonia Is this a current diagnosis for this admission?: Yes Plan: 07/17/2019-patient with a white count and a left lower lobe infiltrate on chest x-ray. At this time we will treat him with IV vancomycin and Zosyn per pharmacy dosing will await cultures for fitting organism and make changes plan of care as appropriate. 07/18/2019-continue IV vancomycin and Zosyn until cultures return. 07/19/2019-continues to improve. I have DC'd Zosyn he is showing gram-positive cocci in blood culture we will continue await cultures. 07/20/2019-improved. Continue to await blood cultures for offending organism. (3) Anemia Is this a current diagnosis for this admission?: Yes Plan: 07/17/2019-chronic stable continue to follow daily CBCs. 07/18/2019-stable, continue to follow daily CBCs 07/19/2019-stable 07/20/2019-stable continue to follow (4) Weakness Is this a current diagnosis for this admission?: Yes Plan: 07/17/2019-restore sodium to normal level have patient evaluated by physical and Occupational Therapy. Await recommendations and make change plan of care. As patient is in a weakened state I will also hold him n.p.o. until he can be seen by speech for swallow evaluation. 07/18/2019-sodium correcting nicely at this time. Patient has physical and occupational therapy consultations and. Patient sleeping at this time his guardian is not at the bedside. Patient answers only simple questions 1 at a time when he does answer questions. He is a poor historian and unable to address needs to himself. 07/19/2019-improved. Patient did walk with physical therapy for 300 feet yesterday. He will continue to work with physical therapy as needed. 07/20/2019-improved continue physical occupational therapy (5) Rectal cancer Is this a current diagnosis for this admission?: Yes Plan: 07/18/2019-we will have nursing contact patient's oncologist and notify me is in the hospital at this time patient was supposed to have an appointment this a.m. 07/19/2019-stable we will follow-up with oncology after his discharge. 07/20/2019-stable follow-up with oncology on discharge - Time Time Spent with patient: 15-24 minutes - Inpatient Certification Based on my medical assessment, after consideration of the patient's comorbidities, presenting symptoms, or acuity I expect that the services needed warrant INPATIENT care.: Yes I certify that my determination is in accordance with my understanding of Medicare's requirements for reasonable and necessary INPATIENT services [42 CFR 412.3e].: Yes Medical Necessity: Other - IV antibiotics
[2019-07-20] MEDS: PANTOPRAZOLE SODIUM 40 MG VIAL IV SCH (11:28)
[2019-07-20] MEDS: ONDANSETRON HCL INJ/PF 4 MG/2 ML SDV IV PRN (14:03)
[2019-07-21] MEDS: HEPARIN SOD (PORCINE) 5,000 UNIT/ML 1 ML VIAL SUBCUT SCH (05:47)
[2019-07-21] MEDS: VANCOMYCIN HCL 1,250 MG in DEXTROSE 5%-WATER 250 ML IV SCH (05:47)
[2019-07-21] MEDS: ONDANSETRON HCL INJ/PF 4 MG/2 ML SDV IV PRN (05:57)
--- NOTE | 2019-07-21 08:40 | PDOC DISCHARGE SUMMARY ---
General - Admit/Disc Date/PCP Admission Date/Primary Care Provider: 07/17/19 18:45 MELIZA LINDSEY PA-C Discharge Date: 07/21/19 - Discharge Diagnosis (1) Hyponatremia Is this a current diagnosis for this admission?: Yes (2) Left lower lobe pneumonia Is this a current diagnosis for this admission?: Yes (3) Anemia Is this a current diagnosis for this admission?: Yes (4) Weakness Is this a current diagnosis for this admission?: Yes (5) Rectal cancer Is this a current diagnosis for this admission?: Yes - Additional Information Resuscitation Status: Full Code Discharge Diet: As Tolerated Discharge Activity: Activity As Tolerated Prescriptions: Sulfamethoxazole/Trimethoprim [Bactrim Ds Tablet] 1 each PO BID #20 tablet Home Medications: Aspirin [Ecotrin 81 mg EC Tablet] 81 mg PO DAILY 07/17/19 Metformin HCl [Glucophage 500 mg Tablet] 1,000 mg PO BID 07/17/19 Multivitamin [Multiple Vitamins] 1 each PO DAILY 07/17/19 [place]-3/Dha/Epa/Fish Oil [Fish Oil 1,000 mg Softgel] 1,000 mg PO BID 07/17/19 Omeprazole 20 mg PO QHS 07/17/19 Ondansetron HCl [Zofran 8 mg Tablet] 8 mg PO Q8HP PRN 07/17/19 Prochlorperazine Maleate [Compazine 10 mg Tablet] 10 mg PO Q8HP PRN 07/17/19 Simvastatin [Zocor 20 mg Tablet] 20 mg PO QPM 07/17/19 Sulfamethoxazole/Trimethoprim [Bactrim Ds Tablet] 1 each PO BID #20 tablet 07/21/19 History of Present Illness Patient complains of: No complaints this a.m. History of Present Illness: ADRIANNE KAY is a 64 year old male who presents with his power of commercial attorney. Patient does not speak much has a history of rectal cancer with as diagnosed 2 years ago. It was currently rated at stage IV. Patient been on chemotherapy for the last 2 weeks although he had no radiation or any surgical interventions. Patient was to have a routine follow-up CAT scan of the abdomen with oral and IV contrast yesterday. He had a prep the night before and then again yesterday morning before the procedure unfortunately started having vomiting at midday yesterday but has had no vomiting at this time. Is eating poorly though he is taking liquids and having any urinary incontinence for some time but did so last night. Patient had a hiccups ever since receiving IV chemotherapy. Patient was found to have severe hyponatremia sodium 116, a left lower lobe pneumonia, anemia and incontinence. Patient had no treatment prior to arrival all activities been aggravating factor. Hospital Course Hospital Course: Patient was admitted on 07/17/2019 with a history of rectal cancer was diagnosed 2 years ago. Patient been on chemotherapy last 2 weeks although he had no radiation or any surgical interventions. Patient presented to the ER with an weakness and was found to be hyponatremic with a sodium 116 and was also found to have a left lower lobe pneumonia and anemia. Patient was admitted placed on IV vancomycin and Zosyn as well as IV normal saline and has shown improvement in his hyponatremia and his community-acquired pneumonia. Patient does have gram- positive cocci in 1 blood culture. At this time patient is improved sufficiently return home I will continue him on Bactrim DS 1 p.o. twice daily x10 days and continue to follow cultures to see if they grow out any other offending organisms. If they do I will reassess patient's plan of care and change as necessary. Patient will follow-up with primary care practitioner in 1 week and his oncologist as needed Physical Exam Vital Signs: Temp Pulse Resp BP Pulse Ox 98.7 F 68 16 144/70 H 99 07/21/19 03:46 07/21/19 07:00 07/21/19 03:46 07/21/19 03:46 07/21/19 03:46 Intake & Output 07/20/19 07/21/19 07/22/19 06:59 06:59 06:59 Intake Total 2664 2729 250 Output Total 2200 3450 Balance 464 -721 250 Weight 87.5 kg 89 kg General appearance: PRESENT: no acute distress, well-developed, well-nourished Neck exam: ABSENT: carotid bruit, JVD, lymphadenopathy, thyromegaly Respiratory exam: PRESENT: clear to auscultation may. ABSENT: rales, rhonchi, wheezes Cardiovascular exam: PRESENT: RRR. ABSENT: diastolic murmur, rubs, systolic murmur Pulses: PRESENT: normal dorsalis pedis pul Vascular exam: PRESENT: normal capillary refill GI/Abdominal exam: PRESENT: normal bowel sounds, soft. ABSENT: distended, guarding, mass, organolmegaly, rebound, tenderness Extremities exam: PRESENT: full ROM. ABSENT: calf tenderness, clubbing, pedal edema Neurological exam: PRESENT: alert, awake, oriented to person. ABSENT: motor sensory deficit Psychiatric exam: PRESENT: appropriate affect, normal mood. ABSENT: homicidal ideation, suicidal ideation Skin exam: PRESENT: dry, intact, warm. ABSENT: cyanosis, rash Results Laboratory Results: 07/20/19 06:08 07/20/19 06:08 07/17/19 07/17/19 15:10 16:55 Troponin I Cancelled < 0.012 Impressions: Head CT 07/17/19 17:29 IMPRESSION: NORMAL BRAIN CT WITHOUT CONTRAST. EVIDENCE OF ACUTE STROKE: NO. Chest X-Ray 07/17/19 18:12 IMPRESSION: Left lingular or lower lobe pneumonia. Qualifiers - * PATIENT BEING DISCHARGED WITH ANY OF THE FOLLOWING DIAGNOSIS: No Acute Heart Failure - Is this a Heart Failure Patient?: No Plan Time Spent: Greater than 30 Minutes
[2019-07-21 09:35] VITALS: BP 123/53
== END 2019-07-21 10:15 | disposition home or self-care (01) | DRG 640 ==
LOC: ER 15:37 → EH 18:45 → 3S 21:30
PROVIDERS: ADMIT Hospitalist; ATTEND Hospitalist
DX: E87.1 Hypo-osmolality and hyponatremia (principal); J18.9 Pneumonia, unspecified organism; C78.7 Secondary malignant neoplasm of liver and intrahepatic bile duct; C78.00 Secondary malignant neoplasm of unspecified lung; E78.00 Pure hypercholesterolemia, unspecified; D64.9 Anemia, unspecified; E11.8 Type 2 diabetes mellitus with unspecified complications; K21.9 Gastro-esophageal reflux disease without esophagitis; Z85.038 Personal history of other malignant neoplasm of large intestine
CPT/HCPCS: 36415; 70450; 71045; 80048; 80053; 80202; 81001; 82962; 83690; 83735; 83935; 84100; 84484; 85025; 87040; 87077; 87186; 93005; 93010; 96361; 96374; 96375; 99285; J1644; J2405; J2543; J3230; J3370; J7030; J7050; J7060; S0164